=== PATIENT | female | born 1985 | race Caucasian/White ===

== ENCOUNTER 2021-06-04 21:11 | Emergency (ER) | payer OTHER, SELFPAY ==
[2021-06-04 21:19] VITALS: BP 141/91; PULSE 93; RESP 18; TEMP 36.2; O2SAT 97
[2021-06-04 22:41] VITALS: BP 129/76; PULSE 75; RESP 18; O2SAT 98
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
[2021-06-04] MEDS: diphenhydrAMINE HCL 25 MG TABLET 50 MG PO (23:18)
[2021-06-04] MEDS: Ibuprofen 600 MG TABLET PO (23:19)
[2021-06-04] MEDS: Metoclopramide HCl 10 MG TABLET PO (23:19)
== END 2021-06-04 23:29 | disposition home or self-care (01) ==
PROVIDERS: Emergency Provider Emergency Medicine Emergency Medical Services; PCP Internal Medicine
DX: S06.0X0A Concussion without loss of consciousness, initial encounter (principal); G44.319 Acute post-traumatic headache, not intractable; S46.811A Strain of other muscles, fascia and tendons at shoulder and upper arm level, right arm, initial encounter; V89.2XXA Person injured in unspecified motor-vehicle accident, traffic, initial encounter; Y93.9 Activity, unspecified; Y92.415 Exit ramp or entrance ramp of street or highway as the place of occurrence of the external cause; Y99.9 Unspecified external cause status
CPT/HCPCS: 99283; 99284; Q0163

== ENCOUNTER 2023-10-03 17:20 | Emergency (ER) | payer OTHER, SELFPAY ==
--- NOTE | ~2023-10-03 | CT_ITS ---
EXAMINATION: CT CERVICAL SPINE WITHOUT CONTRAST CLINICAL INFORMATION: Fall with neck pain. Head strike. COMPARISON: None available. TECHNIQUE: Noncontrast CT of the cervical spine was performed. This CT examination was performed using dose optimization techniques as appropriate, variously including the following: *Automated exposure control *Adjustment of mA and/or kV according to patient size (this includes techniques or standardized protocols for targeted exams where dose is matched to indication/reason for exam; i.e. extremities or head) *Use of iterative reconstruction technique DLP: 502 mGy-cm FINDINGS: There is straightening of the cervical lordosis. Spinal alignment is otherwise anatomic in the sagittal projection. Vertebral body heights are preserved. There is degenerative disc disease at C6-C7 characterized by intervertebral disc space narrowing, endplate sclerosis, and marginal osteophytosis. The prevertebral soft tissue is normal in appearance. There is no acute cervical spine fracture. The C1-C2 relationship is anatomic. The dens is intact. Visualized lung apices are clear. The thyroid gland is normal in appearance. CT/CT cervical spine wo IV con IMPRESSION: No acute osseous cervical spine abnormality. There is degenerative disc disease at C6-C7. Fleischner guidelines were followed.
--- NOTE | ~2023-10-03 | CT_ITS ---
EXAMINATION: CT HEAD WITHOUT CONTRAST CLINICAL INFORMATION: Fall with head strike. COMPARISON: Brain MRI dated 12/10/2016. TECHNIQUE: Contiguous axial imaging was performed from the skull base to vertex without intravenous administration of contrast. This CT examination was performed using dose optimization techniques as appropriate, variously including the following: *Automated exposure control *Adjustment of mA and/or kV according to patient size (this includes techniques or standardized protocols for targeted exams where dose is matched to indication/reason for exam; i.e. extremities or head) *Use of iterative reconstruction technique DLP: 1277 mGy-cm FINDINGS: There is no acute intracranial hemorrhage. There is no evidence of acute/subacute cerebral or cerebellar infarction. There is no mass effect or midline shift. No extra-axial fluid collection. No hydrocephalus. The orbits are symmetric and within normal limits. The calvarium is intact. Visualized paranasal sinuses are well aerated. Mastoid air cells are clear. There is a right frontal scalp swelling/induration. CT/CT head/brain wo IV con IMPRESSION: No acute intracranial abnormality. There is right frontal scalp swelling/induration.
[2023-10-03 17:25] VITALS: BP 187/109; PULSE 96; RESP 20; TEMP 37; O2SAT 100; BMI 38.4
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
[2023-10-03 18:00] VITALS: BP 138/96; PULSE 78; RESP 16; O2SAT 97
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
[2023-10-03 19:26] VITALS: BP 138/96; PULSE 78; RESP 16; TEMP 36.7; O2SAT 97
== END 2023-10-03 19:27 | disposition home or self-care (01) ==
PROVIDERS: Emergency Provider Internal Medicine; PCP Internal Medicine
DX: S06.0X0A Concussion without loss of consciousness, initial encounter (principal); S01.91XA Laceration without foreign body of unspecified part of head, initial encounter; R51.9 Headache, unspecified; M54.2 Cervicalgia; W01.10XA Fall on same level from slipping, tripping and stumbling with subsequent striking against unspecified object, initial encounter; Y93.89 Activity, other specified; Y92.89 Other specified places as the place of occurrence of the external cause; Y99.8 Other external cause status
CPT/HCPCS: 70450; 72125; 99284

== ENCOUNTER 2023-10-10 07:30 | Emergency (ER) | payer OTHER, SELFPAY ==
[2023-10-10 07:34] VITALS: BP 146/101; PULSE 78; RESP 16; TEMP 36.4; O2SAT 97; BMI 38.4
--- NOTE | 2023-10-10 07:48 | ED.GENADULT ---
HPI - General Adult General Chief complaint: Wound/Laceration Stated complaint: remove staple Time Seen by Provider: 10/10/23 07:44 Source: patient Mode of arrival: ambulatory Limitations: no limitations History of Present Illness ED Provider: Carlos CARNES HPI narrative: 38 year old female presents for staple removal placed on 10/03/2023. No compalints. No headaches, vision changes, dizziness, weakness. Related Data Previous Rx's ?Medication ?Instructions ?Recorded metoclopramide HCl 10 mg tablet 10 mg PO Q6H PRN nausea and 06/04/21 (Reglan) vomiting #14 tabs Allergies Allergy/AdvReac Type Severity Reaction Status Date / Time No Known Allergies Allergy Verified 10/10/23 07:35 Review of Systems Review of Systems: Yes all other systems are reviewed and are negative [facility] Past Medical History Attestation statement: The following information was validated with the patient. Source: old records reviewed and nursing notes reviewed Medical History No known health problems Social History Social History Advance Directives: Yes Advance Directives Information Provided: Yes Advance Directives on File: No Physical Exam ED Vital Signs: Vital Signs - 24 hr 10/10/23 07:34 Temperature 97.5 F Pulse Rate 78 Respiratory Rate 16 Blood Pressure 146/101 H Pulse Oximetry 97 Oxygen Delivery Method Room Air BMI result Body Mass Index 38.4 vss Appearance: Alert.? Oriented X3.? No acute cardiopulmonary distress distress.? Head: Normocephalic, atraumatic, no step-offs or deformities Neck: Normal inspection.? Neck supple.? + one intact staple to right temporal region well healing CVS: Pulses normal.? Respiratory: No respiratory distress.? Skin: ? Normal skin color. Extremities: 5/5 strength to bilateral upper and lower extremities Neuro: Oriented X 3.? No motor deficit.? No sensory deficit. Medical Decision Making Medical Decision Making [facility] Narrative: 38 f presents for staple removal PE - one intact staple to right temporal region well healing hx and pe normal wound healing, no abscess. Plan- removed one staple Differential Diagnosis Differential Diagnoses: The differential diagnosis associated with the presentation includes hx and pe normal wound healing, no abscess. Admission/Observation Consideration of admission/observation: Escalation of care including admission/observation considered Discharge Plan Discharge Clinical Impression: Removal of leslie Patient Disposition: Home, Self-Care Additional Instructions: Take your medications as prescribed. If you were prescribed antibiotics today, it is important that you take your medication to their entirety, do not skip any doses, do not finish them early. Follow-up with your primary care provider this week. Return to the emergency department with new or worsening symptoms. Such as fevers, chills, chest pain, shortness of breath, nausea, vomiting, dizziness, headache, vision changes, lethargy In case of emergency call 911 Prescriptions: No Action metoclopramide HCl [Reglan] 10 mg tablet 10 mg PO Q6H PRN (Reason: nausea and vomiting) Qty: 14 0RF Print Language: Pakistani
== END 2023-10-10 08:07 | disposition home or self-care (01) ==
PROVIDERS: Emergency Provider Emergency Medicine; PCP Internal Medicine
DX: Z48.02 Encounter for removal of sutures (principal)
CPT/HCPCS: 99281